=== PATIENT | male | born 1955 | race Caucasian/White ===

== ENCOUNTER 2018-03-29 12:11 | Outpatient (CLI) | payer OTHER ==
[2015-03-29 15:49] VITALS: BP 112/68
[2018-03-29 12:28] LABS: APPEARANCE,URINE CLOUDY (CLEAR); COLOR,URINE YELLOW (YELLOW); OCCULT BLOOD,URINE TRACE-INTACT (NEGATIVE); PH URINE 5.5 (5.0 - 8.0); UROBILINOGEN URINE 0.2 Eu (0.2-1.0)
[2018-03-29 12:29] LABS: AMORPHOUS SEDIMENT,UR MANY (NEGATIVE)
== END 2018-03-29 12:12 ==
LOC: LAB 12:11
PROVIDERS: ATTEND Internal Medicine
DX: R82.90 Unspecified abnormal findings in urine (principal)
CPT/HCPCS: 81002; 87086; 87186